=== PATIENT | male | born 1935 | race Caucasian/White ===

== ENCOUNTER 2016-11-12 11:29 | Emergency (ER) | payer MEDICARE ==
--- NOTE | 2016-11-12 11:43 | ERPHSYRPT ---
- History of Present Illness Time Seen by Provider: 11/12/16 11:39 Source: patient, family Exam Limitations: no limitations Physician History: Hit his head and has laceration on top of his head about 7 cms long, superficial , no active bleeding Timing/Duration: today Severity: mild Associated Symptoms: denies symptoms Allergies/Adverse Reactions: No Known Drug Allergies Allergy (Verified 11/12/16 11:47) - Review of Systems Constitutional: No Symptoms Eyes: No Symptoms Ears, Nose, & Throat: No Symptoms Respiratory: No Symptoms Cardiac: No Symptoms Abdominal/Gastrointestinal: No Symptoms Skin: Other (laceration on top of his head) - Nursing Vital Signs Nursing Vital Signs: Initial Vital Signs Temperature 98.4 F 11/12/16 11:29 Pulse Rate 82 11/12/16 11:29 Respiratory Rate 20 11/12/16 11:29 Blood Pressure 145/74 11/12/16 11:29 O2 Sat by Pulse Oximetry 95 11/12/16 11:29 Pain Scale Pain Intensity 0 - Physical Exam General Appearance: no apparent distress Eye Exam: PERRL/EOMI Ears, Nose, Throat Exam: normal ENT inspection Neck Exam: normal inspection Neurologic Exam: alert, oriented x 3, cooperative Skin Exam: laceration (superficial, 7 cms long, on top of scalp) Procedures - Laceration/Wound Repair Parietal Wound Location: head Wound Length (cm): 7 Wound's Depth, Shape: superficial Wound Explored: clean Irrigated: Yes Hibiclens Prep: Yes Anesthesia: topical Wound Debrided: minimal Wound Repaired With: Anusha Number of Sutures: 8 - Course Nursing assessment & vital signs reviewed: Yes Ordered Tests: Medication Summary Discontinued Medications Generic Name Dose Route Start Last Admin Trade Name Rivas PRN Reason Stop Dose Admin Bacitracin Confirm 11/12/16 11:44 Baciguent Packet Administered 11/12/16 11:45 Dose 1 gm .ROUTE .STK-MED ONE Lidocaine HCl Confirm 11/12/16 11:45 Xylocaine 2% Uro-Jet Administered 11/12/16 11:46 Dose 200 mg .ROUTE .STK-MED ONE - Progress Progress: improved Counseled pt/family regarding: diagnosis, need for follow-up - Departure Time of Disposition: 11:50 Departure Disposition: Home Clinical Impression: Laceration of scalp without complication Qualifiers: Encounter type: initial encounter Qualified Code(s): S01.01XA - Laceration without foreign body of scalp, initial encounter Condition: Stable Critical Care Time: No Referrals: MICHAEL MERLOS [Primary Care Provider] - Instructions: Laceration Repair -- Anusha Additional Instructions: LACERATION CARE 1. Do not use peroxide, merthiolate, alcohol, or betadine. 2. Keep wound clean and dry. 3. Change dressing if it becomes wet or soiled. 4. If you must work, wear protective covering. 5. You may return to the emergency department or see your family physician for suture removal. 6. See your family physician or return to the emergency department for any of the following signs or symptoms: A. Redness B. Swelling C. Discolored drainage D. Red streaks E. Elevated temperature F. Other signs of infection
[2016-11-12] MEDS ORDERED: BACIGUENT PACKET ONE (11:44)
[2016-11-12] MEDS ORDERED: XYLOCAINE 2% Uro-Jet ONE (11:45)
[2016-11-12] MEDS ORDERED: BACIGUENT PACKET TP ONE (11:51)
[2016-11-12] MEDS ORDERED: Adacel Vial IM ONE ×2 (11:51→11:54)
[2016-11-12] MEDS ORDERED: XYLOCAINE 2% Uro-Jet TOP ONE (11:52)
[2016-11-12 12:02] VITALS: BP 125/63; PULSE 74; O2SAT 97
== END 2016-11-12 12:13 | disposition home or self-care (01) ==
LOC: ED 11:29
PROC: 0HQ0XZZ Repair Scalp Skin, External Approach (ICD-10-PCS; principal; 2016-11-12)
DX: S01.01XA Laceration without foreign body of scalp, initial encounter (principal); W22.8XXA Striking against or struck by other objects, initial encounter
CPT/HCPCS: 12002; 90471; 90715; 99283; 99284; A9270-GY

== ENCOUNTER 2021-10-21 17:39 | Emergency (ER) | payer MEDICARE ==
[2021-10-21] MEDS ORDERED: NORCO 5/325 MG PO ONE (17:59)
[2021-10-21] MEDS ORDERED: Adacel Vial IM ONE ×2 (18:01→18:13)
--- NOTE | 2021-10-21 18:08 | ERPHSYRPT ---
- History of Present Illness Time Seen by Provider: 10/21/21 17:40 Source: patient Exam Limitations: no limitations Patient Subjective Stated Complaint: Pt states "I fell in the back of a [employer] truck and hit my left side, my left lower ribs hurt and my left forearm." Triage Nursing Assessment: PT presented alert and oriented X 3, skin pwd. Pt ambulates with a slow shuffing gait. PT has skin tear noted to left forearm and pain and tenderness noted to posterior lower left ribs. Physician History: 86 years old with a history of Parkinson's disease, baseline issues with balance, hyperlipidemia presented in the ER after he lost his balance while working/helping his son on his truck and landed on rin of we will on the left lower chest wall posteriorly along with flank area and also got a skin tear in the elbow/left forearm area. No difficulty movements of elbow. Did not hit his head. No loss of consciousness. No difficulty breathing Occurred: just prior to arrival Reason for Fall: lost balance Injuries/Pain Location: upper extremity, back Loss of Consciousness: no loss of consciousness Quality: sharpness Severity of Pain-Max: moderate Severity of Pain-Current: moderate Modifying Factors: Improves With: immobilization. Worsens With: movement Associated Symptoms (Fall): back pain, chest pain, extremity injury, muscle spasms, No abdominal pain, No headache, No lightheadedness, No nausea, No neck pain, No ringing in ears, No shortness of breath, No slurred speech, No vomiting, No vision changes Allergies/Adverse Reactions: No Known Drug Allergies Allergy (Verified 11/12/16 11:47) Home Medications: Atorvastatin Calcium [Lipitor] 10 mg PO DAILY 10/21/21 [History] Carbidopa/Levodopa [Carbidopa-Levodopa 25-100 Tab] 1 each PO DAILY 10/21/21 [History] Pramipexole Di-HCl [Mirapex] 0.25 mg PO DAILY 10/21/21 [History] Trihexyphenidyl HCl 2 mg PO DAILY 10/21/21 [History] Hx Tetanus, Diphtheria Vaccination/Date Given: No Hx Influenza Vaccination/Date Given: Yes Hx Pneumococcal Vaccination/Date Given: Yes Immunizations Up to Date: Yes Travel Risk - International Travel Have you traveled outside of the country in past 3 weeks: No - Coronavirus Screening Are you exhibiting any of the following symptoms?: No Close contact with a COVID-19 positive Pt in past 14-21 Days: No - Vaccine Status Have you recieved a Covid-19 vaccination: Yes 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: Moderna - Vaccination Dates Date of 2cond Vaccination (if applicable): 2020 - Review of Systems Constitutional: No Symptoms Eyes: No Symptoms Ears, Nose, & Throat: No Symptoms Respiratory: No Symptoms Cardiac: Chest Pain Abdominal/Gastrointestinal: Abdominal Pain Genitourinary Symptoms: Flank Pain Musculoskeletal: Injury Skin: Skin Lesions Neurological: No Symptoms Psychological: No Symptoms Endocrine: No Symptoms Hematologic/Lymphatic: No Symptoms Immunological/Allergic: No Symptoms - Past Medical History Pertinent Past Medical History: Yes Neurological History: No Pertinent History Cardiac History: High Cholesterol, Hypertension Respiratory History: No Pertinent History Endocrine Medical History: No Pertinent History Musculoskeletal History: Fractures Other Medical History: bph - Past Surgical History Past Surgical History: Yes Cardiac: Cardiac Catheterization Musculoskeletal: Other - Social History Smoking Status: Current some day smoker Exposure to second hand smoke: No Drug Use: none Patient Lives Alone: No - Nursing Vital Signs Nursing Vital Signs: Initial Vital Signs Temperature 97.2 F 10/21/21 17:44 Pulse Rate 70 10/21/21 17:44 Respiratory Rate 20 10/21/21 17:44 Blood Pressure 153/67 10/21/21 17:44 O2 Sat by Pulse Oximetry 92 L 10/21/21 17:44 Pain Scale Pain Intensity 2 - [place] Coma Score Best Eye Response ([place]): (4) open spontaneously Best Verbal Response ([place]): (5) oriented Best Motor Response ([place]): (6) obeys commands Uziel Total: 15 - Physical Exam General Appearance: no apparent distress, alert Head Injury: no evidence of injury, No Jurado's Sign, No contusions, No swelling, No tenderness Eye Exam: PERRL/EOMI, eyes nml inspection ENT Exam: airway nml, No evidence of ENT injury, No dental injury Neck Exam: supple, trachea midline, full range of motion, normal alignment, normal inspection, No mid-line tenderness Respiratory/Chest Exam: chest tenderness (Left lower posterior/lateral chest wall and flank area. No crepitus.), normal breath sounds Cardiovascular Exam: normal heart sounds, regular rate/rhythm Gastrointestinal Exam: soft, normal bowel sounds, tenderness (Left flank), guarding Back Exam: normal inspection, normal range of motion Extremity Exam: normal inspection, normal range of motion Neurologic Exam: alert, oriented x 3, cooperative, waist fitter II-XII nml as tested, normal mood/affect, sensation nml, abnormal gait, other (Tremors), No nml station & gait, No motor deficits Skin Exam: normal color SpO2 Interpretation: normal SpO2: 92 O2 Delivery: Room Air Ordered Tests: Medication Summary Discontinued Medications Generic Name Dose Route Start Last Admin Trade Name Rivas PRN Reason Stop Dose Admin Hydrocodone Bitart/Acetaminophen 1 tab 10/21/21 17:59 10/21/21 18:14 Hydrocodone/Apap 5/325 Mg Tablet PO 10/21/21 18:00 1 tab STAT ONE Administration Hydrocodone Bitart/Acetaminophen Confirm 10/21/21 18:13 Hydrocodone/Apap 5/325 Mg Tablet Administered 10/21/21 18:14 Dose 1 tab .ROUTE .STK-MED ONE Bacitracin Zinc Confirm 10/21/21 20:52 Bacitracin Packet 1 Each Pckt Administered 10/21/21 20:53 Dose 1 each .ROUTE .STK-MED ONE Bacitracin Zinc 0.9 each 10/21/21 21:03 10/21/21 21:08 Bacitracin Packet 1 Each Pckt TP 10/21/21 21:04 0.9 each STAT ONE Administration Diphtheria/Tetanus/Acell Pertussis 0.5 ml 10/21/21 18:01 10/21/21 18:14 Tdap --Diph,Pertuss(Acell),Tet Vac/Pf 0.5 Ml Vial IM 10/21/21 18:02 0.5 ml .ONCE ONE Administration Diphtheria/Tetanus/Acell Pertussis Confirm 10/21/21 18:13 Tdap --Diph,Pertuss(Acell),Tet Vac/Pf 0.5 Ml Vial Administered 10/21/21 18:14 Dose 0.5 ml IM .STK-MED ONE - Progress Progress: improved, pain not gone completely, re-examined Progress Note: 10/21/21 20:56 86 years old is evaluated for mechanical fall. It was witnessed. Did not hit his head. Patient is not on any blood thinners. Does not have any pain in the neck or head. No difficulty breathing. Given oral [place], on reevaluation feeling much better. CT chest showed fracture 12th rib with no pneumothorax/ hemothorax. No acute finding and CT abdomen pelvis without contrast. Left elbow negative for any acute fracture dislocation x-rays reviewed by me, official report is pending. Cleaned, bacitracin applied and dressing done. Tetanus updated. I have offered him pain medication but he refused and with baseline issues with balance I think it is reasonable to take Tylenol as needed and not any narcotics to avoid another fall with head injury. Plan discussed with patient and family understand and agree with it. I would give him lidocaine patches to apply. Discussed signs symptoms of worsening needing return to ER which he seems understanding. Counseled pt/family regarding: diagnosis, need for follow-up, rad results - Departure Departure Disposition: Home Clinical Impression: Rib fracture, Fall, Left elbow contusion Condition: Stable Critical Care Time: No Referrals: MICHAEL MERLOS [Primary Care Provider] - Follow up/PCP as directed (1-2 days for reevaluation) Instructions: Contusion (DC), Preventing Falls in Older Adults Additional Instructions: Take Tylenol as needed. Follow-up with primary care for reevaluation. Return to ER for any worsening of pain, difficulty breathing, headache, dizziness, lightheadedness etc. Prescriptions: Lidocaine [Lidoderm] 1 each TP DAILY 20 Days #20 patch
[2021-10-21] MEDS ORDERED: NORCO 5/325 MG ONE (18:13)
[2021-10-21] MEDS ORDERED: BACIGUENT PACKET ONE (20:52)
[2021-10-21] MEDS ORDERED: BACIGUENT PACKET TP ONE (21:03)
[2021-10-21 21:05] VITALS: O2SAT 92
[2021-10-21 21:06] VITALS: BP 123/79; PULSE 63
--- NOTE | 2021-10-22 08:40 | XRAY ---
Indication: Pain following fall. Comparison: None 3 view left elbow demonstrates osteopenia and small spurring of the olecranon process. No other bony, articular, or soft tissue abnormalities.
--- NOTE | 2021-10-22 08:44 | XRAY ---
Indication: Left-sided pain following fall. History of Parkinson's disease. Multiple contiguous axial images obtained through the chest without contrast. Comparison: December 25, 2010 Lungs demonstrates mild bilateral dependent atelectasis and a few tiny pulmonary calcified granulomas. No suspicious pulmonary mass, infiltrate, effusion, or pneumothorax. Heart not enlarged. Aorta is mildly arteriosclerotic without aneurysm. Small mediastinal and bilateral hilar calcified nodes. No pathologic mediastinal lymphadenopathy. Mid esophagus is now mildly fluid distended presumed from gastroesophageal reflux. Bony thorax demonstrates osteopenia and flowing osteophytes throughout the spine. New findings including nondisplaced left 12 acute rib fracture, remote-appearing T1/T2/T10 compression fractures with approximately 25-50% height loss, and sternotomy wires. CT abdomen/pelvis reported separately. Impression: 1. New left 12 rib fracture without hemothorax/pneumothorax. 2. New GERD. 3. Chronic bony findings and old granulomatous disease.
--- NOTE | 2021-10-22 08:49 | XRAY ---
Indication: Left-sided pain following fall. History of Parkinson's disease. Multiple contiguous axial images obtained through the abdomen and pelvis without contrast. Comparison: December 25, 2010 CT chest reported separately. Noncontrasted stomach and bowel loops nonobstructed with normal appendix. Again sigmoid diverticulosis without diverticulitis. No free fluid/air. Stable large left lower renal exophytic cysts with new punctate peripheral calcification. Again enlarged prostate gland impresses on the base of the bladder. There remains tiny splenic calcified granulomas. Remaining liver, gallbladder, pancreas, spleen, adrenal glands, kidneys, ureters, and bladder are unremarkable for noncontrast exam. Worsening moderate scattered aortoiliac calcifications without AAA. Osseous structures intact again with osteopenia and moderate degenerative changes throughout the spine and both hips. Stable tiny metallic shrapnel lateral to left inferior pubic ramus. Impression: 1. Again sigmoid diverticulosis, large left renal cysts with new punctate calcification, enlarged prostate gland, arteriosclerotic disease, and chronic bony findings. 2. Remaining CT abdomen/pelvis without contrast exam is negative.
== END 2021-10-21 21:15 | disposition home or self-care (01) ==
LOC: ED 17:39
DX: S22.32XA Fracture of one rib, left side, initial encounter for closed fracture (principal); S50.02XA Contusion of left elbow, initial encounter; S51.812A Laceration without foreign body of left forearm, initial encounter; W01.198A Fall on same level from slipping, tripping and stumbling with subsequent striking against other object, initial encounter; Z91.81 History of falling; R07.81 Pleurodynia; G20 Parkinson's disease; E78.5 Hyperlipidemia, unspecified; I10 Essential (primary) hypertension; Z72.0 Tobacco use; Z79.899 Other long term (current) drug therapy
CPT/HCPCS: 71250; 73080; 74176; 90471; 90715; 99283; A9270-GY